=== PATIENT | female | born 1930 | race Caucasian/White ===

== ENCOUNTER 2017-06-06 14:42 | Emergency (ER) | payer MEDICARE, OTHER ==
[2017-06-06] MEDS ORDERED: PROPARACAINE 0.5% OPHTH DROPS 15 ML BTL LEFT EYE STA (15:44)
[2017-06-06] MEDS ORDERED: LISINOPRIL 10 MG TAB PO STA (15:44)
[2017-06-06 16:13] LABS: Basophils % (A) 0 %; Eosinophils # (A) 0.3 k/uL (0-0.7); Eosinophils % (A) 3 %; HCT 37.9 % (34.0-46.0); HGB 12.3 gm/dL (11.4-16.0); Lymphocytes # (A) 1.8 k/uL (1.0-4.8); Lymphocytes % (A) 23 %; MCH 27.7 pg (25.0-35.0); MCHC 32.5 g/dL (31.0-37.0); MCV 85.3 fL (80.0-100.0); Mean Platelet Volume 7.5; Monocytes # (A) 0.6 k/uL (0-1.0); Monocytes % (A) 7 %; Neutrophils # (A) 4.8 k/uL (1.3-7.7); Neutrophils % (A) 62 %; Platelet Count 322 k/uL (150-450); RBC 4.44 m/uL (3.80-5.40); RDW 13.3 % (11.5-15.5); WBC 7.7 k/uL (3.8-10.6)
--- NOTE | 2017-06-06 16:16 | XR ---
EXAMINATION TYPE: XR chest 1V portable DATE OF EXAM: 06/06/2017 COMPARISON: NONE HISTORY: Hypertension and chest pain TECHNIQUE: Single frontal view of the chest is obtained. FINDINGS: There is no focal air space opacity, pleural effusion, or pneumothorax seen. The cardiac silhouette size is within normal limits. The osseous structures are intact. There is tortuosity and atheromatous changes of the descending thoracic aorta. Right-sided acromioclavicular widening is age indeterminant. IMPRESSION: No acute cardiopulmonary process.
[2017-06-06 16:21] LABS: Partial Thromboplastin Time 23.3 sec (22.0-30.0); Prothrombin Time 10.1 sec (9.0-12.0)
[2017-06-06 16:28] VITALS: RESP 17
[2017-06-06 16:29] LABS: ALT 20 U/L (9-52); AST 21 U/L (14-36); Albumin 3.8 g/dL (3.5-5.0); Alkaline Phosphatase 95 U/L (38-126); Anion Gap 10 mmol/L; Blood Urea Nitrogen 17 mg/dL (7-17); Calcium 9.2 mg/dL (8.4-10.2); Carbon Dioxide 25 mmol/L (22-30); Chloride 102 mmol/L (98-107); Glucose 108 mg/dL (74-99); Potassium 4.6 mmol/L (3.5-5.1); Sodium 137 mmol/L (137-145); Total Bilirubin 0.4 mg/dL (0.2-1.3); Total Protein 6.8 g/dL (6.3-8.2)
--- NOTE | 2017-06-06 16:34 | CT ---
EXAMINATION TYPE: CT brain wo con DATE OF EXAM: 06/06/2017 COMPARISON: NONE HISTORY: Hypertensive, cloudy left eye, neuro deficits CT DLP: 893.5 mGycm Automated exposure control for dose reduction was used. TECHNIQUE: CT scan of the head is performed without contrast. FINDINGS: There is no acute intracranial hemorrhage or midline shift identified. There is diffuse v entricular and sulcal prominence consistent with diffuse age-related cerebral atrophy. Dystrophic ca lcifications are seen within the bilateral basal ganglia. Lacunar injuries are noted of the right ext ernal capsule. There is low-attenuation in the periventricular white matter consistent with chronic s mall vessel ischemic change. The globes are intact and the visualized sinuses are clear. Scleral c alcifications are incidentally noted. IMPRESSION: No acute intracranial hemorrhage or midline shift. There is diffuse age-related cerebra l atrophy and chronic small vessel ischemic change noted.
[2017-06-06 16:35] LABS: Creatine Kinase 51 U/L (30-135)
[2017-06-06 16:48] LABS: Creatine Kinase MB 1.7 ng/mL (0.0-2.4); Troponin I <0.012 ng/mL (0.000-0.034)
[2017-06-06] MEDS ORDERED: TROPICAMIDE 1% OPHTH DROPS 2 ML BTL BOTH EYES SCH (17:30)
[2017-06-06 18:00] VITALS: BP 158/71; PULSE 71
--- NOTE | 2017-06-06 18:06 | ED ---
General Adult HPI - General Chief complaint: Neuro Symptoms/Deficit Stated complaint: hypertensive and cloudy left eye Time Seen by Provider: 06/06/17 15:38 Source: patient, RN notes reviewed, old records reviewed Mode of arrival: ambulatory Limitations: no limitations - History of Present Illness Initial comments: 87-year-old female presenting from urgent care with elevated blood pressure and left eyes vision loss. Patient's symptoms began approximately 3 days ago. She noted cloudiness in her left lower visual field. Denies any focal weakness or numbness. Denies headache. Denies vision changes in her right eye. Patient denies fever or chills. Denies chest pain or shortness of breath. Patient does have history of hypertension, she is on lisinopril, she did not take this medication today. - Related Data Home Medications Medication Instructions Recorded Confirmed Aspirin 325 mg PO DAILY 06/06/17 06/06/17 Cardio Plus 1 tab PO DAILY 06/06/17 06/06/17 Cyanocobalamin (Vitamin B-12) 1,000 mcg PO DAILY 06/06/17 06/06/17 [Vitamin B-12] [employer] Ii 1 tab PO DAILY 06/06/17 06/06/17 Iodzyme Hp 1 tab PO DAILY 06/06/17 06/06/17 Ipex 1 tab PO DAILY 06/06/17 06/06/17 Levothyroxine Sodium [Synthroid] 50 mcg PO DAILY 06/06/17 06/06/17 Lisinopril [Prinivil] 10 mg PO DAILY 06/06/17 06/06/17 [place]-3 Fatty Acids/Fish Oil [Fish 1 cap PO DAILY 06/06/17 06/06/17 Oil 1,000 mg Softgel] Previous Rx's Medication Instructions Recorded Lisinopril [Prinivil] 20 mg PO DAILY #30 tablet 06/06/17 Allergies Allergy/AdvReac Type Severity Reaction Status Date / Time atorvastatin [From Lipitor] Allergy Rash/Hives Verified 06/06/17 17:01 Penicillins Allergy Rash/Hives Verified 06/06/17 17:01 pneumococcal vaccine Allergy Rash/Hives Verified 06/06/17 15:09 Review of Systems ROS Statement: Those systems with pertinent positive or pertinent negative responses have been documented in the HPI. ROS Other: All systems not noted in ROS Statement are negative. Past Medical History Past Medical History: Hypertension, Thyroid Disorder History of Any Multi-Drug Resistant Organisms: None Reported Past Surgical History: Hysterectomy Past Psychological History: No Psychological Hx Reported Smoking Status: Former smoker Past Alcohol Use History: None Reported Past Drug Use History: None Reported General Exam Limitations: no limitations General appearance: alert, in no apparent distress Head exam: Present: atraumatic, normocephalic Eye exam: Present: normal appearance, PERRL, EOMI ENT exam: Present: normal exam Neck exam: Present: normal inspection. Absent: tenderness, meningismus Respiratory exam: Present: normal lung sounds bilaterally. Absent: respiratory distress Cardiovascular Exam: Present: regular rate, normal rhythm GI/Abdominal exam: Present: soft. Absent: distended, tenderness Extremities exam: Present: normal inspection, normal capillary refill. Absent: pedal edema Back exam: Present: normal inspection, full ROM Neurological exam: Present: alert, oriented X3, CN II-XII intact. Absent: motor sensory deficit Psychiatric exam: Present: normal affect, normal mood Skin exam: Present: warm, dry, intact. Absent: cyanosis, diaphoretic Course Vital Signs 06/06/17 06/06/17 06/06/17 15:06 16:26 17:54 Temperature 98.6 F Pulse Rate 86 76 71 Respiratory 16 17 17 Rate Blood Pressure 212/100 170/74 158/71 O2 Sat by Pulse 98 98 98 Oximetry - Reevaluation(s) Reevaluation #1: 06/06/17 18:05 Patient reevaluated in the emergency department by Dr. Pierce. EKG Findings - EKG Comments: EKG Findings:: EKG: Normal sinus rhythm, left atrial enlargement, left axis deviation, nonspecific intraventricular block, rate of 74, MT interval 158, QRS duration 130, QTC 486 Medical Decision Making - Medical Decision Making 87-year-old female presents for evaluation of hypertension and left eye vision loss. Patient's blood pressure was initially quite elevated, it is down trending, prior to treatment, she does receive her normal dose of lisinopril and blood pressure significantly improves. Regarding the patient's vision loss, she has normal extraocular movements, vision is 20/50 in the left eye, 20/50 in the right eye, 20/50 in the bilateral eyes. Pupils are equal round reactive to light. Ultrasound of the globe does not show any vitreous hemorrhage or retinal detachment. Intraocular pressure is 14 on the right, 17 on the left. Patient's eyes are dilated and she is evaluated by Dr. Pierce in the emergency department. He believes her symptoms are related to hypertensive retinopathy. Patient patient's blood pressure medication will be increased to 20 mg once daily. Laboratory studies reveal normal CBC, normal CMP, CT of the brain is obtained, this is negative for acute intracranial hemorrhage, there is age-related atrophy. Chest x-ray negative. Patient is eager for discharge, she will follow -up with ophthalmology as an outpatient. - Lab Data Result diagrams: 06/06/17 15:55 06/06/17 15:55 Lab Results 06/06/17 06/06/17 06/06/17 Range/Units 15:55 15:55 15:55 WBC 7.7 (3.8-10.6) k/uL RBC 4.44 (3.80-5.40) m/uL Hgb 12.3 (11.4-16.0) gm/dL Hct 37.9 (34.0-46.0) % MCV 85.3 (80.0-100.0) fL MCH 27.7 (25.0-35.0) pg MCHC 32.5 (31.0-37.0) g/dL RDW 13.3 (11.5-15.5) % Plt Count 322 (150-450) k/uL Neutrophils % 62 % Lymphocytes % 23 % Monocytes % 7 % Eosinophils % 3 % Basophils % 0 % Neutrophils # 4.8 (1.3-7.7) k/uL Lymphocytes # 1.8 (1.0-4.8) k/uL Monocytes # 0.6 (0-1.0) k/uL Eosinophils # 0.3 (0-0.7) k/uL Basophils # 0.0 (0-0.2) k/uL PT (9.0-12.0) sec INR (<1.2) APTT (22.0-30.0) sec Sodium 137 (137-145) mmol/L Potassium 4.6 (3.5-5.1) mmol/L Chloride 102 (98-107) mmol/L Carbon Dioxide 25 (22-30) mmol/L Anion Gap 10 mmol/L BUN 17 (7-17) mg/dL Creatinine 0.45 L (0.52-1.04) mg/dL Est GFR (CKD-EPI)AfAm >90 (>60 ml/min/1.73 sqM) Est GFR (CKD-EPI)NonAf 89 (>60 ml/min/1.73 sqM) Glucose 108 H (74-99) mg/dL Calcium 9.2 (8.4-10.2) mg/dL Total Bilirubin 0.4 (0.2-1.3) mg/dL AST 21 (14-36) U/L ALT 20 (9-52) U/L Alkaline Phosphatase 95 (38-126) U/L Total Creatine Kinase 51 (30-135) U/L CK-MB (CK-2) 1.7 (0.0-2.4) ng/mL CK-MB (CK-2) Rel Index 3.3 Troponin I <0.012 (0.000-0.034) ng/mL Total Protein 6.8 (6.3-8.2) g/dL Albumin 3.8 (3.5-5.0) g/dL 06/06/17 Range/Units 15:55 WBC (3.8-10.6) k/uL RBC (3.80-5.40) m/uL Hgb (11.4-16.0) gm/dL Hct (34.0-46.0) % MCV (80.0-100.0) fL MCH (25.0-35.0) pg MCHC (31.0-37.0) g/dL RDW (11.5-15.5) % Plt Count (150-450) k/uL Neutrophils % % Lymphocytes % % Monocytes % % Eosinophils % % Basophils % % Neutrophils # (1.3-7.7) k/uL Lymphocytes # (1.0-4.8) k/uL Monocytes # (0-1.0) k/uL Eosinophils # (0-0.7) k/uL Basophils # (0-0.2) k/uL PT 10.1 (9.0-12.0) sec INR 1.0 (<1.2) APTT 23.3 (22.0-30.0) sec Sodium (137-145) mmol/L Potassium (3.5-5.1) mmol/L Chloride (98-107) mmol/L Carbon Dioxide (22-30) mmol/L Anion Gap mmol/L BUN (7-17) mg/dL Creatinine (0.52-1.04) mg/dL Est GFR (CKD-EPI)AfAm (>60 ml/min/1.73 sqM) Est GFR (CKD-EPI)NonAf (>60 ml/min/1.73 sqM) Glucose (74-99) mg/dL Calcium (8.4-10.2) mg/dL Total Bilirubin (0.2-1.3) mg/dL AST (14-36) U/L ALT (9-52) U/L Alkaline Phosphatase (38-126) U/L Total Creatine Kinase (30-135) U/L CK-MB (CK-2) (0.0-2.4) ng/mL CK-MB (CK-2) Rel Index Troponin I (0.000-0.034) ng/mL Total Protein (6.3-8.2) g/dL Albumin (3.5-5.0) g/dL Disposition Clinical Impression: Hypertensive retinopathy of left eye Disposition: HOME SELF-CARE Condition: Fair Instructions: Hypertension (ED) Prescriptions: Lisinopril [Prinivil] 20 mg PO DAILY #30 tablet Referrals: Lisa Stallworth DO [Primary Care Provider] - 1-2 days Tyshawn Pierce MD [STAFF PHYSICIAN] - 1-2 days Time of Disposition: 18:10
[2017-06-06 18:27] VITALS: TEMP 96.8
--- NOTE | 2017-06-07 09:47 | CONS ---
CONSULTATION DATE OF SERVICE: 06/06/2017 OPHTHALMOLOGY CONSULT CHIEF COMPLAINT: Poor vision, left eye. HISTORY OF PRESENT ILLNESS: Ms. Teran presented to the emergency room due to change in her peripheral vision in the left eye. The patient noticed a decrease in her left lower visual field that began one day prior. The visual change is constant and has not improved. There are no alleviating factors. There is no associated pain. The patient was also noted to have very high blood pressure that is being treated by the emergency room staff. REVIEW OF SYSTEMS: Otherwise negative. MEDICAL HISTORY: Significant for hypertension and hypothyroid. OCULAR HISTORY: Significant for cataract surgery in both eyes. MEDICATIONS: Aspirin, lisinopril. ALLERGIES: ATORVASTATIN, PENICILLIN. SURGICAL HISTORY: Noncontributory. SOCIAL HISTORY: Denies alcohol use or tobacco use. OPHTHALMIC EXAM: Visual acuity is 20/80 at near in the right eye and 20/80 at near in the left eye. Intra-ocular pressure is within normal limits in both eyes. Ocular examination reveals normal anterior chamber in both eyes. There is a posterior chamber intraocular lens in both eyes. Limited evaluation of the retina reveals abnormal vasculature at the optic nerve in the left eye. ASSESSMENT AND PLAN: 1. 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 The patient likely has optic neuropathy related to her hypertension. However, a lab workup including erythrocyte sedimentation rate and CRP is recommended. This will help rule out giant cell arteritis. I recommend optimizing her blood pressure control. She will require dilated examination and static perimetry in the office after discharge. 2. Hypertensive retinopathy, both eyes. I recommend tight blood pressure control. 3. 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 Thank you for allowing me to participate in this patient's care. I recommend evaluation as an outpatient within one week after discharge. MMODL / IJN: [id number] /
== END 2017-06-06 18:26 | disposition home or self-care (01) ==
LOC: EC 14:42
DX: H35.032 Hypertensive retinopathy, left eye (principal); I10 Essential (primary) hypertension; E07.9 Disorder of thyroid, unspecified; Z87.891 Personal history of nicotine dependence; Z79.82 Long term (current) use of aspirin; Z79.899 Other long term (current) drug therapy; Z88.8 Allergy status to other drugs, medicaments and biological substances; Z88.0 Allergy status to penicillin; Z88.7 Allergy status to serum and vaccine
CPT/HCPCS: 36415; 70450; 71045; 80053; 82550; 82553; 84484; 85025; 85610; 85652; 85730; 86140; 93005; 99284